=== PATIENT | male | born 1995 | race Hispanic/Latino ===

== ENCOUNTER 2019-01-26 15:51 | Emergency (ER) | payer SELFPAY ==
[~2019-01-26] VITALS: Ht 170.2 cm; Wt 72.6 kg
[~2019-01-26 15:51] MED LIST: HYDROCODON-ACE1 EA10 PO; KEFLEX500 MG PO; NORCO 5-325 TA1 EACH PO; ZOFRAN ODT4 MG PO
== END 2019-01-26 17:52 | disposition home or self-care (01) ==
LOC: ED 15:51
DX: F10.129 Alcohol abuse with intoxication, unspecified (principal); Y90.8 Blood alcohol level of 240 mg/100 ml or more
CPT/HCPCS: 99284; G0480

== ENCOUNTER 2019-05-02 09:50 | Emergency (ER) | payer BC ==
[~2019-05-02] VITALS: Ht 170.2 cm; Wt 72.6 kg
[2019-05-02] MEDS ORDERED: AMOX TR-K CLV1 EAC1 PO (10:02)
[2019-05-02] MEDS ORDERED: NORCO 7.5-3251 EACH PO (12:27)
== END 2019-05-02 12:52 | disposition home or self-care (01) ==
LOC: ED 09:50
PROC: 0C9P3ZZ Drainage of Tonsils, Percutaneous Approach (ICD-10-PCS; principal; 2019-05-02)
DX: J36 Peritonsillar abscess (principal); F17.200 Nicotine dependence, unspecified, uncomplicated
CPT/HCPCS: 42700; 80053; 85025; 99283-25; J0295; J1100; J1170; J1885; J7030

== ENCOUNTER 2020-01-13 16:18 | Observation (INO) | payer BC ==
[~2020-01-13] VITALS: Ht 165.1 cm; Wt 73.1 kg
[~2020-01-13 16:18] MED LIST changes: +AMOX TR-K CLV1 EAC1 PO; +NORCO 7.5-3251 EACH PO
[2020-01-13] MEDS ORDERED: ONDANSETRON ODT4 MG PO (16:35)
--- NOTE | 2020-01-13 20:10 | NUR ---
PT ARRIVED TO FLOOR VIA STRETCHER. PT STANDS AND TRANSFERS TO BED. ADMISSION PROCESS COMPLETE. PT ALERT AND ORIENTED. ASKS APPROPRIATE QUESTIONS. ORIENTED TO ROOM AND POC FOR THIS SHIFT. EDCUATION PROVIDED REGARDING DIET AND MEDICATIONS. CALL LIGHT IN REACH. PT'S MOM AT BEDSIDE, PLANS TO STAY THE NIGHT WITH PT. JELLO, APPLE JUICE, AND WATER PROVIDED. PT DENIES FURTHER NEEDS AT THIS TIME.
--- NOTE | 2020-01-13 21:10 | NUR ---
pt RESTING IN BED AWAKE, DENIES PAIN AND NAUSEA AT THIS TIME. ASSESSMENT COMPLETE. IVF INFUSING WNL ORDERED, FLUSHED WNL, GOOD BLOOD RETURN. MOTHER ON COUCH, BEDDING MADE. CALL LIGHT IN REACH, pt DENIES ANY NEEDS AT THIS TIME. VERBALIZES UNDERSTANDING TO USE CALL LIGHT BEFORE GETTING OUT OF BED.
--- NOTE | 2020-01-13 22:26 | NUR ---
PATIENT CALLED TO USE THE BATHROOM. SBA. PATIENT VOIDED LIGHT YELLOW URINE 175CC. PATIENT IS BACK IN BED. MOM IN THE ROOM LAYING ON THE COUCH.
--- NOTE | 2020-01-14 00:21 | NUR ---
CHECKED ON pt. RESTING IN BED AWAKE. pt C/O 08/27 ABDOMINAL PAIN, NAUSEA. DESCRIBES PAIN "TIGHT". SBA TO RESTROOM FOR 375 ML VOID AND BACK TO BED. IVF INFUSING WNL ORDERED. CALL LIGHT IN REACH.
--- NOTE | 2020-01-14 02:30 | NUR ---
pt SLEEPING, AWAKENS TO VOICE. VSS. NO C/O PAIN, DROWSY. NEW BAG IVF INFUSING WNL ORDERED. CALL LIGHT IN REACH. LIGHTS OFF IN ROOM.
--- NOTE | 2020-01-14 04:47 | NUR ---
CALL LIGHT ANSWERED. URINE EMPTIED. VSS. ASSESSMENT COMPLETE. pt DENIES ANY PAIN, NAUSEA "GETTING BETTER". WATER, JUICE, JELLO PROVIDED REQUESTED. CALL LIGHT IN REACH.
--- NOTE | 2020-01-14 04:59 | NUR ---
pt SBA/INDEPENDENT IN ROOM. IVF INFUSING WNL THROUGHOUT SHIFT. PRN PAIN AND NAUSEA MEDICATION X 1 THIS SHIFT. VSS. QS VOIDS, CLEAR YELLOW URINE. MOTHER IN ROOM.
--- NOTE | 2020-01-14 07:31 | NUR ---
Patient in bed awake, alert and oriented x4. Pt has no needs. Personal supplies and call light within reach.
--- NOTE | 2020-01-14 08:10 | NUR ---
Admin Tylenol 650mg po for reports of 5/10 abdominal pain.
--- NOTE | 2020-01-14 09:42 | NUR ---
MED REC COMPLETE
--- NOTE | 2020-01-14 12:47 | NUR ---
PT REPORTS CRAMPING PAIN BILAT LOWER QUADRANTS. HE REPORTS 5/10 BUT THAT IT IS NOT BAD JUST ANNOYING AND CONSTANT. PT ENCOURAGED TO WALK, AND SEE IF THAT WOULD IMPROVE THE SYMPTOMS. HE IS UP NOW AMBULATING SMALL EAST LOOP IN HALLS WITH HIS MOTHER.
--- NOTE | 2020-01-14 13:29 | NUR ---
PT ALERT, ORIENTED AND SUPPORTED BY HIS MOTHER AT . PT FEELS HE IS IMPROVING ABLE TO KEEP JELLO AND BROTH DOWN. PLANNING ON MORE SOON. PT THANKED ME FOR COMING BY AND CHECKING, GAVE BLESSING AND WILL FOLLOW
--- NOTE | 2020-01-14 13:52 | NUR ---
PATIENT IS RESTING IN ROOM WITH GUEST IN ROOM. SAYS THAT HIS WALK HELPED IS PAIN. CALL LIGHT IS IN REACH. NO OTHER NEEDS AT THIS TIME.
--- NOTE | 2020-01-14 14:39 | NUR ---
Patient up walking in hallway with mom at side. Pt tolerating well.
--- NOTE | 2020-01-14 14:45 | NUR ---
WALKED WITH PT HE AMBULATED DOWN [place] WITH HIS MOTHER. PT STATED PAIN AT 2-3, VERY TOLERABLE. PT ADMITTED HE LEARNED A VALUABLE LIFE LESSON THROUGH THIS EXPERIENCE. GAVE ENCOURAGEMENT, WILL FOLLOW
--- NOTE | 2020-01-14 14:56 | NUR ---
Patient would like a flu vaccination just prior to discharge.
--- NOTE | 2020-01-14 16:03 | NUR ---
Pt indenpendent in room. Walked in hallway SBA; tolerates well. LR @150ml/hr continuous. Labs improving. Denies nausea and reports abd pain is improving. Good urine output. Tolerating soup and water. Mom at bedside throughout shift. Urine is clear yellow.
--- NOTE | 2020-01-14 16:36 | NUR ---
Met with [place] and he denies needs for equipment. States he feels weak, and does not feel he could walk out of the hospital at this time. Feels he would need a wc. He lives in [place] with his parents. He works for [employer] and is in the [email or web address]. He attended combat training and has been ill since. Denies need for DME, plans on dc to his parents home when he is feeling better. Does not feel he is ready for dc as this time. Encouraged to speak with Dr. Ledezma and let her know.
--- NOTE | 2020-01-14 16:55 | NUR ---
Pt does not have pcp. He goes to [facility] [employer]. States he would like a pcp in [facility], as medical is in [place]. Appt. scheduled with Dr. Ray at [facility] as he would like an MD. Appt. Jan 21, at 13:30.
--- NOTE | 2020-01-14 17:56 | NUR ---
PATIENT IS LAYING IN BED RESTING WITH GUEST IN ROOM. WARM BLANKET REQUESTED AND GIVEN. NO OTHER NEEDS AT THIS TIME. CALL LIGHT IN REACH.
--- NOTE | 2020-01-14 19:46 | NUR ---
REPORT RECEIVED FROM MIGUEL ANGEL NICHOLS. PT UP TO BR TO VOID, MOTHER AT BEDSIDE, ENGAGED IN CARE AND ATTENTIVE TO PT. PT REPORTS NO PAIN, STATES "FEELING IMPROVED SINCE YESTERDAY". IVF INFUSING WNL. CALL LIGHT IN REACH, WILL CONT TO MONITOR
--- NOTE | 2020-01-14 19:50 | NUR ---
PATIENT CALLED TO USE THE REST ROOM. EMPTIED URINAL. PATIENT'S MOTHER IS IN THE ROOM.
--- NOTE | 2020-01-14 20:30 | NUR ---
ASSESSMENT COMPLETE, VITALS AND I/O'S COMPLETE. PT AMBULATES TO BR, CALLS APPROPRIATELY. WATER REFRESHED. MADE PLAN WITH PT TO ADMIN PRN TYLENOL PRIOR TO BEDTIME. MOTHER IN ROOM. CALL LIGHT IN REACH, PT STATES NO NEEDS AT THIS TIME.
--- NOTE | 2020-01-14 21:54 | NUR ---
CALL LIGHT ANSWERED, IV PUMP ALARMING. NEW BAG IVF HUNG, RATE 125 ML/HR. INFUSING WNL. URINAL EMPTIED. PRN TYLENOL REQUESTED FOR 2/10 PAIN, ADMINISTERED. CALL LIGHT WITHIN REACH, PT REPORTS NO OTHER NEEDS AT THIS TIME.
--- NOTE | 2020-01-15 00:16 | PATH ---
[facility] [address] [place], [place] [address] Signed ORDERING PHYSICIAN: Simón Mancini MD PATIENT NAME: JESSICA MONTEROLA GENDER: M : 1995 Prior History: No cases found. SPECIMEN(S): No Source Given MOLECULAR PATHOLOGY RESULTS: SARS-CoV-2 Not Detected ADDITIONAL NOTES.: The [place] Fusion SARS-CoV-2 Assay is a multiplex real-time PCR (RT-PCR) in vitro diagnostic test intended for the qualitative detection of RNA from SARS-CoV-2 from individuals who meet COVID-19 clinical and/or epidemiological criteria. In general, SARS-CoV-2 RNA can be detected during the acute phase of infection. Positive results indicate the presence of SARS-CoV-2 RNA. Clinical correlation with patient history and other diagnostic information is necessary to determine patient infection status. Positive results do not rule out bacterial infection or co-infection with other viruses. Negative results do not preclude SARS-CoV-2 infection and should not be used as the sole basis for patient management decisions. Negative results must be combined with other clinical observations, patient history, and epidemiological information. The [place] Fusion SARS-CoV-2 Assay is not yet approved or cleared by the [place] FDA. When there are no FDA-approved or cleared tests available, and other criteria are met, FDA can make tests available under an emergency access mechanism called an Emergency Use Authorization (EUA). The EUA for this test is supported by the [employer] Worker of Health and Human Service's (HHS's) declaration that circumstances exist to justify the emergency use of in vitro diagnostics for the detection and/or diagnosis of the virus that causes COVID-19. This EUA will remain in effect for the duration of the COVID-19 declaration justifying emergency of IVDs, unless it is terminated or revoked by FDA, after which the test may no longer be used. The [place] Fusion SARS-CoV-2 Assay is for use only under EUA PATIENT NAME: CARLOTA MONTEROMARCUS HENRIQUEZ PATHOLOGY DATE OF : [birth year] REPORT #: [id number] PHYSICIAN: LIZA PATHOLOGY PCP: NO PRIMARY CARE PHYSICIAN REPORT IS CONFIDENTIAL AND NOT TO BE RELEASED WITHOUT AUTHORIZATION [facility] [address] [place] [id number] Signed in laboratories certified under the Clinical Laboratory Improvement Amendments of 1988 (CLIA) to perform high complexity tests. [facility] is certified under CLIA to perform high complexity clinical laboratory testing. PERFORMING LABORATORY.: Molecular testing was performed by [facility] [place] [address] (Pediatric Occupational Therapist: Tk Saldaña D.O.; CLIA#: [id number]) Diagnostician: System Interface Pathologist Electronically Signed 01/14/2020 Copies: ~ PATIENT NAME: ZA MONTEROYOLANDA HENRIQUEZ PATHOLOGY DATE OF : [birth year] REPORT #: [id number] PHYSICIAN: LIZA ROQUE PCP: NO PRIMARY CARE PHYSICIAN REPORT IS CONFIDENTIAL AND NOT TO BE RELEASED WITHOUT AUTHORIZATION
--- NOTE | 2020-01-15 00:42 | NUR ---
PATIENT ABLE TO AMBULATE TO BR TO VOID WITH SBA. PT USES CALL LIGHT APPROPRIATELY, URINE OUTPUT QUANTITY SUFFICIENT
--- NOTE | 2020-01-15 03:34 | NUR ---
PATIENT CALLED TO USE THE BATHROOM. EMPTIED URINAL. PATIENT IS INDEPENDENT IN ROOM. PATIENT'S MOTHER IS IN THE ROOM.
--- NOTE | 2020-01-15 03:35 | NUR ---
CALL LIGHT ANSWERED, PT REQUESTS URINAL TO BE EMPTIED. ASSESSMENT COMPLETE. LUNG SOUNDS CLEAR, BOWEL TONES ACTIVE, HEART REGULAR IN RATE/RHYTHM. CMS INTACT. PT REPORTS NO NEEDS AT THIS TIME, CALL LIGHT IN REACH, MOTHER IN ROOM. IVF INFUSING WNL. WILL CONT TO MONITOR
--- NOTE | 2020-01-15 05:26 | NUR ---
PT STATES 4/10 PAIN IN ABD THIS MORNING, SCHEDULED TYLENOL AND NIO SENNA ADMINISTERED. PT UP WALKING IN HALLWAY WITH MOTHER, STATES SOME RELIEF FOUND AFTERWARDS. PT DUE TO HAVE BM. BOWEL TONES ACTIVE. ASSESSMENT OTHERWISE UNREMARKABLE. VSS, A+Ox4. VOIDING QS. TOLERATING CLEAR LIQUID DIET. IVF INFUSING WNL. USES CALL LIGHT APPROPRIATELY.
--- NOTE | 2020-01-15 08:36 | NUR ---
PATIENT AWAKE IN BED, MOTHER IN ROOM. FRESH ICE WATER GIVEN, WASHCLOTHS LAID OUT IN BATHROOM FOR PATIENTS USE. NO OTHER NEEDS AT THIS TIME
--- NOTE | 2020-01-15 09:37 | NUR ---
PATIENT AWAKE IN BED, MOM IN ROOM. VITALS AND I&OS CHARTED. NO OTHER NEEDS AT THIS TIME
--- NOTE | 2020-01-15 09:51 | NUR ---
Patient in bed resting, alert and oriented x4. Patient worked with physical therapy this morning-see their chart notes. Pt appears to ambulate without difficulty, even gait noted. Pt reports has intermittent abd cramping, +bowel tones noted throughout. Patient encouraged to drink water. No needs at this time.
[2020-01-15] MEDS ORDERED: ONDANSETRON ODT4 MG PO (11:22)
[2020-01-15] MEDS ORDERED: NEXIUM 24HR20 M3 PO (11:24)
--- NOTE | 2020-01-15 14:34 | NUR ---
PT AMBULATING IN [place] WITH MOTHER AT HIS SIDE. PT STATED HE WAS ABLE TO KEEP SOME FOOD DOWN AND HAS NOT HAD ANY NAUSEA, ALTHOUGH ABDO PAIN STILL PRESENT. PLANS TO DC TODAY, GAVE ENCOURAGEMENT AND BLESSING
== END 2020-01-15 13:30 | disposition home or self-care (01) ==
LOC: ED 16:18 → MS 16:20
PROVIDERS: ADMIT Internal Medicine; ATTEND Internal Medicine
DX: M62.82 Rhabdomyolysis (principal); N17.9 Acute kidney failure, unspecified; A08.4 Viral intestinal infection, unspecified; Z23 Encounter for immunization; Z20.828 Contact with and (suspected) exposure to other viral communicable diseases; Z90.49 Acquired absence of other specified parts of digestive tract
CPT/HCPCS: 36415; 74176; 80048; 80053; 81001; 82550; 83690; 83735; 84100; 85025; 90686; 96374; 96375; 96376; 97161; 99285-25; C9113; C9803; G0008; G0378; J2405; J7030; J7121; U0003